=== PATIENT | male | born 2000 | race Caucasian/White ===

== ENCOUNTER 2023-06-06 12:22 | Day surgery (SDC) | payer OTHER ==
[~2023-06-06] VITALS: Ht 172.7 cm; Wt 84.9 kg
[~2023-06-06 12:22] MED LIST: NS 1,000 ML IV ONE; PANT40TA29 PO; SUCR1TA PO
[2023-06-06] MEDS ORDERED: LIDOCAINE 2% 100MG/5ML SDV (FOR ANES.) As Ordered ONE (14:14)
[2023-06-06] MEDS ORDERED: propofoL 200 MG/20 ML VIAL As Ordered ONE (14:14)
[2023-06-06] MEDS ORDERED: fentaNYL 100 MCG/2 ML INJECTION As Ordered ONE (14:15)
[2023-06-06 15:55] VITALS: TEMP 98
[2023-06-06 16:11] VITALS: BP 114/57; O2SAT 100
== END 2023-06-06 16:20 | disposition home or self-care (01) ==
LOC: M OPP 12:22
PROVIDERS: ATTEND Internal Medicine Gastroenterology
DX: K21.9 Gastro-esophageal reflux disease without esophagitis (principal); R11.10 Vomiting, unspecified; Z87.19 Personal history of other diseases of the digestive system; F17.290 Nicotine dependence, other tobacco product, uncomplicated; Z79.899 Other long term (current) drug therapy
CPT/HCPCS: 43239; 88305; J3010

== ENCOUNTER 2024-08-13 10:22 | Day surgery (SDC) | payer OTHER ==
[~2024-08-13] VITALS: Ht 175.3 cm; Wt 91.6 kg
[~2024-08-13 10:22] MED LIST changes: +ACET1TAB55 PO; +GNP1000C11 PO; -NS 1,000 ML IV ONE; +QC F0.52 PO
[2024-08-13] MEDS ORDERED: LIDOCAINE 2% 100MG/5ML SDV (FOR ANES.) As Ordered ONE (12:29)
[2024-08-13] MEDS ORDERED: propofoL 200 MG/20 ML VIAL As Ordered ONE (12:29)
[2024-08-13 12:38] VITALS: TEMP 97.6
[2024-08-13 13:04] VITALS: BP 131/71; O2SAT 98
== END 2024-08-13 13:10 | disposition home or self-care (01) ==
LOC: M OPP 10:22
PROVIDERS: ATTEND Internal Medicine Gastroenterology
DX: K62.5 Hemorrhage of anus and rectum (principal); K64.0 First degree hemorrhoids; Z79.899 Other long term (current) drug therapy; F17.200 Nicotine dependence, unspecified, uncomplicated